=== PATIENT | female | born 1970 | race Caucasian/White ===

== ENCOUNTER 2017-03-30 14:20 | Emergency (ER) | payer MEDICAID ==
[~2017-03-30] VITALS: Ht 167.6 cm; Wt 127.0 kg
[2017-03-30 14:40] VITALS: BP_SYST 118
[2017-03-30] MEDS ORDERED: IBUPROFEN 800 MG TABLET PO ONE (15:00)
[2017-03-30 15:11] LABS: BASOPHILS # (AUTO) 0.1 K/uL (0.0-0.2); BASOPHILS % (AUTO) 0.9 % (0.0-2.0); EOSINOPHILS # (AUTO) 0.3 K/uL (0.0-0.4); EOSINOPHILS % (AUTO) 2.4 % (0.0-4.0); HEMATOCRIT 32.8 % (36-48); HEMOGLOBIN 10.6 g/dL (12.0-16.0); LYMPHOCYTES # (AUTO) 2.4 K/uL (1.0-5.5); LYMPHOCYTES % (AUTO) 20.9 % (20.5-51.5); MEAN CORPUSCULAR HEMOGLOBIN 23 pg (27-31); MEAN CORPUSCULAR HGB CONC 32 % (32-36); MEAN CORPUSCULAR VOLUME 71 fL (79.0-98.0); MONOCYTES # (AUTO) 0.5 K/uL (0.0-1.0); MONOCYTES % (AUTO) 4.4 % (1.7-9.3); NEUTROPHILS # (AUTO) 8.3 K/uL (1.8-7.7); NEUTROPHILS % (AUTO) 71.4 % (40.0-70.0); PLATELET COUNT (AUTO) 338 K/uL (130-430); RED BLOOD CELL COUNT(AUTO) 4.63 MIL/uL (4.2-6.2); RED CELL DISTRIBUTION WIDTH 18.1 % (9.0-15.0); WHITE BLOOD COUNT (AUTO) 11.6 K/uL (4.8-10.8)
[2017-03-30 15:25] LABS: CALCIUM 8.8 mg/dL (8.4-11.0); CREATININE 0.73 mg/dL (0.55-1.30); POTASSIUM 3.8 mmol/L (3.5-5.1)
[2017-03-30 15:37] LABS: TOTAL BILIRUBIN 0.1 mg/dL (0.0-1.0)
[2017-03-30 15:38] LABS: ALBUMIN 3.1 g/dL (3.4-4.8)
[2017-03-30 16:21] LABS: BILIRUBIN,URINE NEGATIVE (NEGATIVE); BLOOD, URINE 3+ (NEGATIVE); CLARITY/URINE SL HAZY (CLEAR); COLOR,URINE YELLOW (YELLOW); GLUCOSE,URINE NEGATIVE (NEGATIVE); KETONES,URINE TRACE (NEGATIVE); LEUKOCYTE ESTERASE ,URINE TRACE (NEGATIVE); NITRITE, URINE POSITIVE (NEGATIVE); PH,URINE 5.5 (5.0-8.0); PROTEIN URINE TRACE (NEGATIVE); UROBILINOGEN,URINE 0.2 (0.2-1.0)
[2017-03-30 16:28] LABS: BACTERIA,URINE MANY /HPF (None Seen); MUCUS,URINE 1+ /LPF (None Seen)
[2017-03-30] MEDS ORDERED: cefTRIAXone 1 GM in LIDOCAINE 1%, 20 ML MDV 2.1 ML IM ONE (17:00)
[2017-03-30] MEDS ORDERED: IBUPROFEN 800 MG TABLET ONE (17:11)
[2017-03-30] MEDS ORDERED: cefTRIAXone 1 GM VIAL ONE (17:13)
[2017-03-30 17:26] VITALS: BP_SYST 120
== END 2017-03-30 17:26 | disposition home or self-care (01) ==
LOC: SED 14:20
DX: N10 Acute pyelonephritis (principal); N94.6 Dysmenorrhea, unspecified; R03.0 Elevated blood-pressure reading, without diagnosis of hypertension; M54.30 Sciatica, unspecified side
CPT/HCPCS: 36415; 76830; 76857; 80053; 81000; 81025; 83690; 85025; 87086; 87186; 96372; 99285; J0696; J2001

== ENCOUNTER 2017-05-04 07:12 | Emergency (ER) | payer MEDICAID ==
[~2017-05-04] VITALS: Ht 167.6 cm; Wt 129.3 kg
[2017-05-04 07:12] VITALS: BP_SYST 161
[2017-05-04] MEDS ORDERED: NACL 0.9% 1,000 ML IV ONE (08:00)
[2017-05-04 08:36] LABS: BILIRUBIN,URINE NEGATIVE (NEGATIVE); BLOOD, URINE 3+ (NEGATIVE); CLARITY/URINE HAZY (CLEAR); COLOR,URINE RED (YELLOW); GLUCOSE,URINE NEGATIVE (NEGATIVE); KETONES,URINE TRACE (NEGATIVE); LEUKOCYTE ESTERASE ,URINE 1+ (NEGATIVE); NITRITE, URINE POSITIVE (NEGATIVE); PH,URINE 5.5 (5.0-8.0); PROTEIN URINE 2+ (NEGATIVE)
[2017-05-04 08:39] LABS: BASOPHILS % (AUTO) 0.5 % (0.0-2.0); EOSINOPHILS # (AUTO) 0.4 K/uL (0.0-0.4); EOSINOPHILS % (AUTO) 4.1 % (0.0-4.0); HEMATOCRIT 37.5 % (36-48); HEMOGLOBIN 11.6 g/dL (12.0-16.0); LYMPHOCYTES % (AUTO) 19.6 % (20.5-51.5); MEAN CORPUSCULAR HEMOGLOBIN 22 pg (27-31); MEAN CORPUSCULAR HGB CONC 31 % (32-36); MEAN CORPUSCULAR VOLUME 72 fL (79.0-98.0); MONOCYTES # (AUTO) 0.4 K/uL (0.0-1.0); MONOCYTES % (AUTO) 3.9 % (1.7-9.3); NEUTROPHILS # (AUTO) 7.2 K/uL (1.8-7.7); NEUTROPHILS % (AUTO) 71.9 % (40.0-70.0); PLATELET COUNT (AUTO) 332 K/uL (130-430); RED BLOOD CELL COUNT(AUTO) 5.19 MIL/uL (4.2-6.2); RED CELL DISTRIBUTION WIDTH 17.1 % (9.0-15.0)
[2017-05-04 08:49] LABS: CREATININE 0.65 mg/dL (0.55-1.30); POTASSIUM 4.3 mmol/L (3.5-5.1)
[2017-05-04 08:51] LABS: CANNABINOID, URINE POSITIVE (NEG <=50)
[2017-05-04 08:52] LABS: BARBITURATE, URINE NEGATIVE (NEG <=200); BENZODIAZEPINE, URINE NEGATIVE (NEG <=150); COCAINE, URINE NEGATIVE (NEG <=150); METHAMPHETAMINES SCREEN,URINE NEGATIVE (NEG <=500); OPIATE, URINE NEGATIVE (NEG <=100); PHENCYCLIDINE SCREEN,URINE NEGATIVE (NEG <=25); UR TRICYCLIC ANTIDEPRESSANTS NEGATIVE (NEG <=300); URINE AMPHETAMINE NEGATIVE (NEG <=500); URINE METHADONE NEGATIVE (NEG <=200); URINE OXYCODONE SCREEN NEGATIVE (NEG <=100); URINE PROPOXYPHENE SCREEN NEGATIVE (NEG <=300)
[2017-05-04 08:55] LABS: ALBUMIN 2.9 g/dL (3.4-4.8); TOTAL BILIRUBIN 0.3 mg/dL (0.0-1.0)
[2017-05-04 08:56] LABS: PROTHROMBIN TIME 10.2 SECS (9.5-12.5)
[2017-05-04 09:11] LABS: BACTERIA,URINE MANY /HPF (None Seen); MUCUS,URINE 1+ /LPF (None Seen); RBC,URINE >100 /HPF (0-3)
[2017-05-04] MEDS ORDERED: PHENAZOPYRIDINE HCL 100 MG TABLET PO ONE (09:30)
[2017-05-04] MEDS ORDERED: IBUPROFEN 800 MG TABLET PO ONE (09:30)
[2017-05-04] MEDS ORDERED: LEVOFLOXACIN 500 MG TABLET ONE (09:57)
[2017-05-04] MEDS ORDERED: LEVOFLOXACIN 750 MG TABLET PO ONE (10:00)
[2017-05-04 10:10] VITALS: BP_SYST 157
== END 2017-05-04 10:10 | disposition home or self-care (01) ==
LOC: SED 07:12
DX: N39.0 Urinary tract infection, site not specified (principal); M54.30 Sciatica, unspecified side
CPT/HCPCS: 36415; 71010; 74176; 80053; 80307; 81000; 81025; 83605; 83690; 85025; 85610; 87040; 87086; 96360; 99285; J7030

== ENCOUNTER 2018-07-21 14:18 | Emergency (ER) | payer MEDICAID ==
[~2018-07-21] VITALS: Ht 167.6 cm; Wt 125.2 kg
[2018-07-21 14:18] VITALS: BP_SYST 149
--- NOTE | 2018-07-21 14:18 | NUR ---
BROUGHT BACK TO BED #7 AND TRIAGED. REPORT GIVEN TO MILLY
--- NOTE | 2018-07-21 14:20 | NUR ---
Pt brought by self, A&Ox4, pt presents to ER with L ear L facial pain, pt states she has a toothache on upper side, afebrile, skin pink and warm, cap refill <3, VS WNL.
--- NOTE | 2018-07-21 14:42 | NUR ---
DR THORPE AT BEDSIDE FOR EVALUATION
[2018-07-21 14:55] VITALS: BP_SYST 137
--- NOTE | 2018-07-21 14:55 | NUR ---
Patient given written and verbal discharge instructions and verbalizes understanding. ER MD Wilson discussed with patient the results and treatment provided. Patient in stable condition. ID arm band removed. Rx of Amoxicillin, Ibuprofen given. Patient educated on pain management and to follow up with PMD. Pain Scale 2. Opportunity for questions provided and answered. Medication side effect fact sheet provided.
== END 2018-07-21 14:55 | disposition home or self-care (01) ==
LOC: SED 14:18
DX: K04.7 Periapical abscess without sinus (principal); K02.9 Dental caries, unspecified; K03.81 Cracked tooth; R03.0 Elevated blood-pressure reading, without diagnosis of hypertension
CPT/HCPCS: 99283

== ENCOUNTER 2018-08-28 10:07 | Emergency (ER) | payer MEDICAID ==
[~2018-08-28] VITALS: Ht 167.6 cm; Wt 125.2 kg
[2018-08-28 10:07] VITALS: BP_SYST 172
[2018-08-28 11:00] VITALS: BP_SYST 127
== END 2018-08-28 11:00 | disposition home or self-care (01) ==
LOC: SED 10:07
DX: K02.9 Dental caries, unspecified (principal); R03.0 Elevated blood-pressure reading, without diagnosis of hypertension
CPT/HCPCS: 99283

== ENCOUNTER 2018-10-29 21:17 | Emergency (ER) | payer MEDICAID ==
[~2018-10-29] VITALS: Ht 167.6 cm; Wt 125.2 kg
[2018-10-29 21:32] VITALS: BP_SYST 195
[2018-10-29] MEDS ORDERED: KETOROLAC TROMETHAMINE 60 MG/2 ML VIAL IM ONE (22:00)
[2018-10-29 22:35] VITALS: BP_SYST 186
== END 2018-10-29 22:35 | disposition home or self-care (01) ==
LOC: SED 21:17
DX: K08.89 Other specified disorders of teeth and supporting structures (principal); F12.10 Cannabis abuse, uncomplicated
CPT/HCPCS: 96372; 99283; J1885